=== PATIENT | male | born 1950 ===

== ENCOUNTER 2020-07-25 12:27 | Inpatient (IN) | payer MEDICARE, SELFPAY ==
[~2020-07-25] VITALS: Ht 172.7 cm; Wt 91.0 kg
[2020-07-25 16:50] VITALS: BP 123/66
[2020-07-25] MEDS ORDERED: BISACODYL 10 MG SUPP PR PRN (18:20)
[2020-07-25] MEDS ORDERED: DEXTROSE 50% 50 ML SYRINGE IV PRN (18:20)
[2020-07-25] MEDS ORDERED: GLUCAGON INJ 1MG VIAL SC PRN (18:20)
[2020-07-25] MEDS ORDERED: GLUCOSE 4GM CHEW TABLET PO PRN (18:20)
[2020-07-25] MEDS ORDERED: INDA125TA PO (19:09)
[2020-07-25] MEDS ORDERED: GABA-282 PO (19:09)
[2020-07-25] MEDS ORDERED: CEFA1INJ5 IV (19:09)
[2020-07-25] MEDS ORDERED: METF-838 PO (19:09)
[2020-07-25] MEDS ORDERED: ACET-910 PO (19:09)
[2020-07-25] MEDS ORDERED: LEXA5TAB13 PO (19:09)
[2020-07-25] MEDS ORDERED: LISI20TA33 PO (19:09)
[2020-07-25] MEDS ORDERED: MELO15TA28 PO (19:09)
[2020-07-25] MEDS ORDERED: LANTINJ4 SC (19:09)
[2020-07-25] MEDS ORDERED: ROSU5TAB5 PO (19:09)
[2020-07-25] MEDS ORDERED: OMEP-218 PO (19:09)
[2020-07-25] MEDS ORDERED: GNP8.6TA7 PO (19:09)
[2020-07-25] MEDS ORDERED: INSUHUMDS SC (19:09)
[2020-07-25] MEDS ORDERED: HEPA500057 SQ (19:09)
[2020-07-25] MEDS ORDERED: PIOG1TAB36 PO (19:09)
[2020-07-25] MEDS ORDERED: COLA100C5 PO (19:09)
[2020-07-25] MEDS ORDERED: PILL CUTTER 1 EACH XX PRN (19:40)
[2020-07-25 20:00] VITALS: BP 127/57
[2020-07-25] MEDS: HumaLOG INSULIN (NovoLOG) PER UNIT SC SCH (21:00)
[2020-07-25] MEDS: metFORMIN XR 500MG TAB *GLUCOPHAGE XR PO SCH (21:20)
[2020-07-25] MEDS: ROSUVASTATIN 10 MG TAB (CRESTOR) PO SCH (21:20)
[2020-07-25] MEDS: SENNA 8.6 MG TAB (SENOKOT) PO SCH (21:20)
[2020-07-25] MEDS: DOCUSATE SODIUM 100MG CAPSULE PO SCH (21:20)
[2020-07-25] MEDS: HEPARIN SOD (PORCINE) 5000UNITS/ML 1ML VIAL/SYRINGE SC SCH (21:21)
[2020-07-25] MEDS: ACETAMINOPHEN 500 MG TAB PO SCH (21:21)
[2020-07-25] MEDS: GABAPENTIN 300 MG CAP PO SCH (21:22)
[2020-07-25] MEDS: REMEDY PHYTOPLEX Z-GUARD PASTE 113GM TUBE (FROM STOREROOM PRODUCT) TOP SCH (21:23)
[2020-07-25] MEDS: oxyCODONE 5MG TAB PO PRN (22:36)
[2020-07-26] MEDS: oxyCODONE 5MG TAB PO PRN (03:54)
[2020-07-26 05:08] VITALS: BP 110/54
[2020-07-26 06:58] LABS: HEMATOCRIT 35.7 % (42.0-52.0); HEMOGLOBIN 11.5 g/dl (13.5-17.5); MEAN CORPUSCULAR HEMOGLOBIN 30.4 pg (27.0-33.0); MEAN CORPUSCULAR HGB CONC 32.2 g/dl (32.0-36.5); MEAN CORPUSCULAR VOLUME 94.4 fl (80.0-96.0); PLATELET COUNT, AUTOMATED 407 10^3/uL (150-450); RED BLOOD COUNT 3.78 10^6/uL (4.30-6.10); WHITE BLOOD COUNT 10.1 10^3/uL (4.0-10.0)
[2020-07-26 07:23] LABS: ALBUMIN 2.9 GM/DL (3.2-5.2); ALT/SGPT 61 U/L (12-78); BILIRUBIN,TOTAL 0.4 MG/DL (0.2-1.0); BLOOD UREA NITROGEN 31 MG/DL (7-18); CALCIUM LEVEL 9.1 MG/DL (8.8-10.2); CARBON DIOXIDE LEVEL 30 MEQ/L (21-32); CHLORIDE LEVEL 102 MEQ/L (98-107); CREATININE FOR GFR 0.97 MG/DL (0.70-1.30); GLOMERULAR FILTRATION RATE > 60.0 (>49); GLUCOSE, FASTING 144 MG/DL (70-100); POTASSIUM SERUM 4.5 MEQ/L (3.5-5.1); SODIUM LEVEL 137 MEQ/L (136-145); TOTAL PROTEIN 6.6 GM/DL (6.4-8.2)
[2020-07-26 07:25] LABS: BASOPHILS 1 % (0-1); EOSINOPHILS 5 % (0-3); LYMPHOCYTES 14 % (16-44); MONOCYTES 3 % (0-5); NEUTROPHILS 74 % (28-66); PLATELET ESTIMATE NORMAL (NORMAL)
[2020-07-26 07:26] LABS: ANISOCYTOSIS 1+
[2020-07-26] MEDS: LEVEMIR (INSULIN DETEMIR) 1 UNITS/0.01ML SC SCH (08:21)
[2020-07-26] MEDS: ESCITALOPRAM OXALATE 5MG TABLET (LEXAPRO) PO SCH (08:22)
[2020-07-26] MEDS: HumaLOG INSULIN (NovoLOG) PER UNIT SC SCH ×4 (08:22→20:11)
[2020-07-26] MEDS: HEPARIN SOD (PORCINE) 5000UNITS/ML 1ML VIAL/SYRINGE SC SCH ×2 (08:22→20:14)
[2020-07-26] MEDS: DOCUSATE SODIUM 100MG CAPSULE PO SCH ×2 (08:22→20:14)
[2020-07-26] MEDS: GABAPENTIN 300 MG CAP PO SCH ×3 (08:22→20:14)
[2020-07-26] MEDS: OMEPRAZOLE 20 MG CAP PO SCH (08:22)
[2020-07-26] MEDS: INDAPAMIDE 1.25MG TABLET PO SCH (08:23)
[2020-07-26] MEDS: ACETAMINOPHEN 500 MG TAB PO SCH ×3 (08:23→20:15)
[2020-07-26] MEDS: REMEDY PHYTOPLEX Z-GUARD PASTE 113GM TUBE (FROM STOREROOM PRODUCT) TOP SCH ×3 (08:24→20:15)
--- NOTE | 2020-07-26 10:43 | HPEPDOC ---
[employer] Technician Note DATE OF ADMISSION: 07-25-20 DATE OF SERVICE: 07-26-20 TIME OF ADMISSION: Please refer to physician's admission order. SOURCE OF ADMISSION INFORMATION: [facility] record and patient CHIEF COMPLAINT: s/p L3-S1 decompression with instrumentation and fusion HISTORY OF PRESENT ILLNESS: 70,M pmh DM, HTN, HLD, chronic low back pain with multiple non-surgical interv entions who was diagnosed with grade 2 L4-L5 spondylolisthesis with worsening LE weakness and pain. He as admitted to [facility] and underwent an L3-S1 tranforaminal lumbar interbody fusion on 07-18-[address] Castro. He developed left foot drop and underwent a washout for epidural fluid on 07-22-[address] Bermudez complicated by CSF leak and with cultures showing no growth. He had difficulty with pain and elevated glucose levels. He was noted to have mobility and ADL impairments below his prior level of function and deemed medically appropriate for discharge to ARU on 07-25-20. REVIEW OF SYSTEMS: The following is a completed review of systems and has been reviewed. Review of systems otherwise unremarkable. PAIN: Patient self reports minimal low back pain EYES: No recent vision changes EARS, NOSE, & THROAT:No throat pain, or dysphagia, or rhinorrhea CARDIOVASCULAR: Denies chest pain or palpitations PULMONARY: Denies shortness of breath GASTROINTESTINAL: Denies constipation/diarrhea GENITOURINARY: denies dysuria MUSCULOSKELETAL: low back pain NEUROLOGICAL: left foot drop with paresthesias HEMATOLOGICAL: denies easy bruising SKIN:lumbar incision PSYCHIATRIC: Unremarkable All other review of systems found to be negative. PAST MEDICAL HISTORY: as per HPI PAST SURGICAL HISTORY: as per HPI and prostate surgery ALLERGIES: Please see below. MEDICATIONS: Please see below. SOCIAL HISTORY: no etoh/illicit drugs/smoking DIET: consistent carb, low sodium PHYSICAL EXAMINATION: VITAL SIGNS: Please see below. GENERAL: Pleasant and cooperative. No acute distress. HEENT: PERRL. Extraocular movements intact. Clear conjunctiva CARDIOVASCULAR: [Regular rate and rhythm. No murmurs, rubs, or gallops LUNGS: Clear to auscultation bilaterally. No wheezes. No rhonchi ABDOMEN: [Soft, nontender, nondistended. Positive bowel sounds. Normal active bowel sounds NEUROLOGICAL: Alert and oriented times three. Cranial nerves II through XII grossly intact. Sensation diminished to light touch L4-L5 dermatomes on left EXTREMITIES: 5\5 strength bilateral upper extremities. 5\5 strength right lower extremity. 5/5 strength in left lower extremity, except 0/5 ELH and 1/5 ankle e version SKIN: lumbo-sacral incision with sutures, no branden-incision induration or drainage, incision mildly erythematous LABORATORY DATA: Please see below. IMAGING:Imaging documentation personally reviewed by record FUNCTIONAL STATUS: Premorbid: Independent with all activities of daily life as well as mobility On Admission: Requiring assistance for ambulation with RW, bed mobility, dressing, toileting GOALS: Mod-I for bed mobility, functional transfers, toileting, bathing, dressing ASSESSMENT:70-year-old M with past medical history of HTN. DM. chronic low back pain who presents status post L3-S1 decompression PLAN: 1. REhab- PT/OT advance mobility and ADLs, spinal precautions, strengthen/stretch/maintain ROM all 4llimbs, eval for left AFO 2. Neuro/Ortho- s/p L3-S1 decompression complicated by left foot drop requiring washout and drainage- patient denies saddle region anesthesia or incontinence, TLSO when OOB, f/u neurosurgery on d/c -monitor CRP and wbc for post-op infection 3. Cardiac- HX of HTN c/u BP meds -HLD c/u statin 4. REsp- monitor for infection 5. Endo- hx of DM c/u metformin, Insulin and ISS 6. GI ppx- prilosec 7. DVT ppx- heparin 8. Pain- tylneol, gabapentin, oxycodone 9. REnal- f/u with Dr. Carbajal for incidental renal lesion 10. Depression- lexapro 11. DIspo-TBD POST ADMISSION PHYSICIAN EVALUATION: Medical and functional status: Description of medical status, medical assessment: As above. Rehabilitation diagnosis and current and prior cold morbid medical conditions as above. Risk of complications and plans to mitigate them as above. Description of functional status current status is as above. Prior status as above. Status compared to preadmission: There are no clinically significant differences between the patient's current status and the information described on the preadmission screening document. Treatment plan anticipated: Treatment plan is as described above. Required disciplines including physical therapy, occupational therapy, others as noted above. Intensity of services: 3 hours a day, 7 days a week. Special considerations: There are no specific special or safety considerations that would likely preclude immediate implementation of an intensive rehabilit ation program or subsequently influence the plan of care. ATTESTATION: Considering all the information above, it is my best judgment that this patient requires intensive rehabilitation therapy as described above and an inpatient hospital environment due to the complexity of nursing, medical, and rehabilitation needs required by the patient. Furthermore, this patient can reasonably be expected to participate in an benefit from an inpatient rehabilitation stay with an interdisciplinary team approach to the delivery of rehabilitation care under the direction and supervision of steph cronin. PROGNOSIS: Excellent ESTIMATED LENGTH OF STAY:7-10 days. PROJECTED DISCHARGE DESTINATION: Home with family support and any durable medical equipment required to increase functional safety and mobility TIME SPENT COUNSELING AND COORDINATING INITIAL CARE: Greater than 70 minutes. Vital Signs Vital Sign - Last 24 Hours 07/25/20 07/25/20 07/25/20 07/25/20 16:50 20:00 22:36 23:30 Temp 97.0 98.4 Pulse 87 89 Resp 18 18 20 18 B/P (MAP) 123/66 (85) 127/57 (80) Pulse Ox 93 97 O2 Delivery Room Air Room Air 07/26/20 07/26/20 07/26/20 07/26/20 03:54 04:30 05:08 08:23 Temp 97.2 Pulse 71 Resp 18 16 18 B/P (MAP) 110/54 (72) 110/54 Pulse Ox 94 O2 Delivery Room Air Laboratory Data CBC/BMP Laboratory Tests 07/26/20 06:07 Labs 24H Laboratory Tests 2 07/25/20 20:03: Bedside Glucose (Misc Panel) 197H 07/26/20 05:33: Bedside Glucose (Misc Panel) 144H 07/26/20 06:07: Immature Granulocyte % (Auto) , Neutrophils (%) (Auto) , Nucleated Red Blood Cells % (auto) 0.0, Neutrophils 74H, Band Neutrophils 3, Lymphocytes (Manual) 14L, Monocytes (Manual) 3, Eosinophils (Manual) 5H, Basophils (Manual) 1, Anisoc ytosis 1+, Platelet Estimate NORMAL, Anion Gap 5L, Glomerular Filtration Rate > 60.0, Calcium Level 9.1, Total Bilirubin 0.4, Aspartate Amino Transf (AST/SGOT) 34, Alanine Aminotransferase (ALT/SGPT) 61, Alkaline Phosphatase 125H, Total Protein 6.6, Albumin 2.9L, Albumin/Globulin Ratio 0.8 FSBS Laboratory Tests Test 07/25/20 20:03 07/26/20 05:33 Range/Units Bedside Glucose (Misc Panel) 197 144 80-115 MG/DL Home Medications Scheduled Cefazolin Sodium (Cefazolin Sodium) 1 Gm Vial.port, 1 GM IV Q8H, (Reported) STARTED AT [place] ON 07/23/20 Docusate Sodium (Colace) 100 Mg Capsule, 100 MG PO BID, (Reported) Escitalopram Oxalate (Lexapro) 5 Mg Tablet, 5 MG PO QHS, (Reported) Gabapentin (Gabapentin) 300 Mg Capsule, 300 MG PO TID, (Reported) Heparin Sodium,Porcine/Pf (Heparin Sod 5,000 Unit/ml Syrg) 5,000 Unit/1 Ml Syringe, 5,000 UNIT SQ Q12H, (Reported) STARTED AT [place] Indapamide (Indapamide) 1.25 Mg Tablet, 1.25 MG PO DAILY, (Reported) Insulin Glargine,Hum.rec.anlog (Lantus Solostar) 100 Unit/1 Ml Insuln.pen, 12 UNITS SC DAILY, (Reported) STARTED AT [place] Insulin Human Lispro (Humalog) 100 Unit/1 Ml Vial, 1 DOSE SC AC, (Reported) PER SLIDING SCALE - STARTED AT [place] Lisinopril (Lisinopril) 20 Mg Tablet, 20 MG PO DAILY, (Reported) Meloxicam (Meloxicam) 15 Mg Tablet, 15 MG PO DAILY, (Reported) Metformin HCl (Metformin HCl ER) 500 Mg Tab.er.24h, 1,000 MG PO BID, (Reported) Omeprazole (Omeprazole) 20 Mg Capsule.dr, 20 MG PO DAILY, (Reported) Pioglitazone HCl (Pioglitazone HCl) 15 Mg Tablet, 15 MG PO DAILY, (Reported) Rosuvastatin Calcium (Rosuvastatin Calcium) 5 Mg Tablet, 5 MG PO QHS, (Reported) Sennosides (Senna Lax) 8.6 Mg Tablet, 17.2 MG PO QHS, (Reported) STARTED AT [place] Scheduled PRN Acetaminophen (Acetaminophen) 325 Mg Tablet, 650 MG PO Q4H PRN for PAIN / FEVER, (Reported) Allergies Coded Allergies: No Known Allergies (Unverified , 07/25/20) A-FIB/CHADSVASC A-FIB History Current/History of A-Fib/PAF?: No Current PO Anticoag Therapy: No MINH SANTIAGO MD July 26, 2020 10:43
[2020-07-26 10:56] LABS: C REACTIVE PROTEIN QUANTITATIV 5.11 MG/DL (0.00-0.30)
--- NOTE | 2020-07-26 11:16 | HPEPDOC ---
[facility] Medical History & Physical Date of Admission July 25, 2020 Date of Service: July 26, 2020 History and Physical CHIEF COMPLAINT: Chronic leg and back pain, spinal stenosis, status post L3-S1 transforaminal lumbar interbody fusion with washout HISTORY OF PRESENT ILLNESS: 70-year-old nonsmoker hypertensive diabetic with chronic insomnia, spinal stenosis L3 to S1. Prostate CA, status post prostatectomy transferred from [facility] status post L3-S1 lumbar interbody fusion with washout, admitted to the acute rehabilitation unit for rehabilitation services. Patient has had long-standing back and leg pain and had undergone conservative management without relief of symptoms significant limitations of activities of daily living, was brought to the operating room across hospital July 18 for L3-S1 transforaminal lumbar interbody fusion on postop day #3, patient developed a new left sided foot drop but back to the OR for lumbar wound washout intraoperative cultures were negative for acute infection. He was treated with prophylactic intravenous Kefzol with improvement in his left foot sharonda patient had no other clinical issues and was transferred to the acute rehabilitation unit [facility]. Patient is currently stable with no complaints. Hospitalist was asked to help manage chronic medical problems. Patient denies any chest pain, pressure, tightness, shortness of breath, palpitations, lightheadedness, dizziness, near syncope. He denies any fever, chills, cough, changes in weight, bowel habits, dysuria, urgency, frequency bright red blood per rectum, melena, black tarry stools, nausea, vomiting, diarrhea, abdominal pain, constipation. He denies any polyuria, polydipsia, polyphagia. No changes in his neurological status, and denies diplopia, blurred vision, muscle or joint pains, generalized maculopapular rash, sore throat, vertigo, ear discharge. PAST MEDICAL HISTORY: Hypertension, diabetes, reflux disease, spinal stenosis, lumbosacral spine, prostate cancer status post prostatectomy incidental finding of a renal mass PAST SURGICAL HISTORY: Prostatectomy, L3-L4 and transforaminal lumbar interbody fusion, lumbar washout SOCIAL HISTORY: is . Patient denies any history of cigarette or alcohol use. No recreational drug use. Retired, previously worked for the time of the call his healthcare proxy is his daughter. He is a focal FAMILY HISTORY: Mother and father age 83. Mother has a leg amputation, unknown medical problems. For the father ALLERGIES: Please see below. REVIEW OF SYSTEMS: 10 point review of systems negative aside from positive findings in HPI HOME MEDICATIONS: Please see below. PHYSICAL EXAMINATION: VITAL SIGNS: See below GENERAL APPEARANCE: Asleep but easily arousable, awake, alert, oriented, able to speak in full sentences. No conversational dyspnea HEENT: Extra muscles intact moist mucous, murmurs or JVD, thyromegaly, stridor, lymphadenopathy or carotid bruit CARDIOVASCULAR: S1, S2, sinus rhythm, no murmurs, rubs or gallops LUNGS: Air entry is equal. No kyphosis or scoliosis clear to auscultation without wheezing, rales, rhonchi ABDOMEN: Positive bowel sounds, soft, nontender, nondistended. No rebound, guarding, no CVA tenderness EXTREMITIES: No cyanosis, clubbing or pitting edema Neurologic: Motor function 5 out of 54 extremities. Gait was not tested. Symmetric face. Tongue is midline. No dysmetria on [id number] testing. Decreased sensation in the left foot light touch LABORATORY DATA: See below. IMAGING: Reviewed from [facility] MICROBIOLOGY: Please see below. ASSESSMENT: 70-year-old nonsmoker hypertensive diabetic with chronic insomnia, spinal stenosis L3 to S1. Prostate CA, status post prostatectomy transferred from [facility] status post L3-S1 lumbar interbody fusion with washout, admitted to the acute rehabilitation unit for rehabilitation services. Patient has had long-standing back and leg pain and had undergone conservative management without relief of symptoms significant limitations of activities of daily living, was brought to the operating room across hospital July 18 for L3-S1 transforaminal lumbar interbody fusion on postop day #3, patient developed a new left sided foot drop but back to the OR for lumbar wound washout intraoperative cultures were negative for acute infection. He was treated with prophylactic intravenous Kefzol with improvement in his left foot sharonda patient had no other clinical issues and was transferred to the acute rehabilitation unit [facility]. Patient is currently stable with no complaints. Hospitalist was asked to help manage chronic medical problems. Patient denies any chest pain, pressure, tightness, shortness of breath, palpitations, lightheadedness, dizziness, near syncope. He denies any fever, chills, cough, changes in weight, bowel habits, dysuria, urgency, frequency bright red blood per rectum, melena, black tarry stools, nausea, vomiting, diarrhea, abdominal pain, constipation. He denies any polyuria, polydipsia, polyphagia. No changes in his neurological status, and denies diplopia, blurred vision, muscle or joint pains, generalized maculopapular rash, sore throat, vertigo, ear discharge. Symptomatic spinal stenosis with left sided foot drop, status post L3-S1 transforaminal lumbar interbody fusion and lumbar washout Patient is to wear molded TLSO brace when out of bed with full weightbearing. Wound care with gentle wash incision with soap and water, black dried and dry thoroughly with hairdryer. No submersion in standing water. Follow-up with neurosurgery within 2 weeks . Rehabilitation services per P MR. Renal mass, incidental finding at [facility] Urology referral History of prostate cancer status post prostatectomy Urology referral for follow-up Hypertension Control resumed on home medications Type 2 diabetes On Lantus oral hypoglycemics and insulin sliding scale with coverage fingersticks every before meals at bedtime check A1c Dyslipidemia On rosuvastatin Vital Signs Vital Signs Date Time Temp Pulse Resp B/P (MAP) Pulse Ox O2 Delivery O2 Flow Rate FiO2 07/26/20 08:23 110/54 07/26/20 05:08 97.2 71 18 94 Room Air Laboratory Data Labs 24H Laboratory Tests 2 07/25/20 20:03: Bedside Glucose (Misc Panel) 197H 07/26/20 05:33: Bedside Glucose (Misc Panel) 144H 07/26/20 06:07: Immature Granulocyte % (Auto) , Neutrophils (%) (Auto) , Nucleated Red Blood Cells % (auto) 0.0, Neutrophils 74H, Band Neutrophils 3, Lymphocytes (Manual) 14L, Monocytes (Manual) 3, Eosinophils (Manual) 5H, Basophils (Manual) 1, Ani socytosis 1+, Platelet Estimate NORMAL, Anion Gap 5L, Glomerular Filtration Rate > 60.0, Calcium Level 9.1, Total Bilirubin 0.4, Aspartate Amino Transf (AST/SGOT) 34, Alanine Aminotransferase (ALT/SGPT) 61, Alkaline Phosphatase 125H, C-Reactive Protein, Quantitative 5.11H, Total Protein 6.6, Albumin 2.9L, Albumin/Globulin Ratio 0.8 CBC/BMP Laboratory Tests 07/26/20 06:07 Home Medications Scheduled Cefazolin Sodium (Cefazolin Sodium) 1 Gm Vial.port, 1 GM IV Q8H STARTED AT [place] ON 07/23/20 Docusate Sodium (Colace) 100 Mg Capsule, 100 MG PO BID Escitalopram Oxalate (Lexapro) 5 Mg Tablet, 5 MG PO QHS Gabapentin (Gabapentin) 300 Mg Capsule, 300 MG PO TID Heparin Sodium,Porcine/Pf (Heparin Sod 5,000 Unit/ml Syrg) 5,000 Unit/1 Ml Syringe, 5,000 UNIT SQ Q12H STARTED AT [place] Indapamide (Indapamide) 1.25 Mg Tablet, 1.25 MG PO DAILY Insulin Glargine,Hum.rec.anlog (Lantus Solostar) 100 Unit/1 Ml Insuln.pen, 12 UNITS SC DAILY STARTED AT [place] Insulin Human Lispro (Humalog) 100 Unit/1 Ml Vial, 1 DOSE SC AC PER SLIDING SCALE - STARTED AT [place] Lisinopril (Lisinopril) 20 Mg Tablet, 20 MG PO DAILY Meloxicam (Meloxicam) 15 Mg Tablet, 15 MG PO DAILY Metformin HCl (Metformin HCl ER) 500 Mg Tab.er.24h, 1,000 MG PO BID Omeprazole (Omeprazole) 20 Mg Capsule.dr, 20 MG PO DAILY Pioglitazone HCl (Pioglitazone HCl) 15 Mg Tablet, 15 MG PO DAILY Rosuvastatin Calcium (Rosuvastatin Calcium) 5 Mg Tablet, 5 MG PO QHS Sennosides (Senna Lax) 8.6 Mg Tablet, 17.2 MG PO QHS STARTED AT [place] Scheduled PRN Acetaminophen (Acetaminophen) 325 Mg Tablet, 650 MG PO Q4H PRN for PAIN / FEVER Allergies Coded Allergies: No Known Allergies (Unverified , 07/25/20) A-FIB/CHADSVASC A-FIB History Current/History of A-Fib/PAF?: No Current PO Anticoag Therapy: No Age/Risk Factor Scoring CHADSVASC: CHADSVASC Response (Comments) Value Age Risk Factor Age 65-74 years old 1 Gender Risk Factor Male 0 Hx of CHF No 0 Hx of HTN Yes 1 Hx of Stroke/TIA/or VTE No 0 Hx of Diabetes Yes 1 Hx of Vascular Disease No 0 Total 3 CHERRY OKCH MD July 26, 2020 11:16
[2020-07-26 11:22] LABS: CHOLESTEROL LEVEL 157 MG/DL (<200); HDL CHOLESTEROL 25 MG/DL (>40); LDL CHOLESTEROL 78 MG/DL (<100); NON-HDL-C 132 MG/DL; TRIGLYCERIDES LEVEL 271 MG/DL (<150)
[2020-07-26 12:13] LABS: HEMOGLOBIN A1c 7.5 %
[2020-07-26 14:00] VITALS: BP 109/56
[2020-07-26] MEDS: metFORMIN XR 500MG TAB *GLUCOPHAGE XR PO SCH (17:15)
[2020-07-26 20:00] VITALS: BP 97/55
[2020-07-26] MEDS: ROSUVASTATIN 10 MG TAB (CRESTOR) PO SCH (20:14)
[2020-07-26] MEDS: SENNA 8.6 MG TAB (SENOKOT) PO SCH (20:14)
[2020-07-27 05:23] VITALS: BP 115/64
[2020-07-27 06:35] LABS: HEMATOCRIT 37.7 % (42.0-52.0); HEMOGLOBIN 11.7 g/dl (13.5-17.5); MEAN CORPUSCULAR HEMOGLOBIN 29.8 pg (27.0-33.0); MEAN CORPUSCULAR VOLUME 96.2 fl (80.0-96.0); PLATELET COUNT, AUTOMATED 505 10^3/uL (150-450); RED BLOOD COUNT 3.92 10^6/uL (4.30-6.10); WHITE BLOOD COUNT 10.6 10^3/uL (4.0-10.0)
[2020-07-27 07:00] LABS: BLOOD UREA NITROGEN 42 MG/DL (7-18); CALCIUM LEVEL 9.3 MG/DL (8.8-10.2); CARBON DIOXIDE LEVEL 30 MEQ/L (21-32); CHLORIDE LEVEL 100 MEQ/L (98-107); CREATININE FOR GFR 1.21 MG/DL (0.70-1.30); GLOMERULAR FILTRATION RATE > 60.0 (>49); GLUCOSE, FASTING 186 MG/DL (70-100); POTASSIUM SERUM 4.6 MEQ/L (3.5-5.1); SODIUM LEVEL 134 MEQ/L (136-145)
[2020-07-27 07:07] LABS: ATYPICAL LYMPH 2 % (0-5); EOSINOPHILS 2 % (0-3); LYMPHOCYTES 29 % (16-44); MONOCYTES 7 % (0-5); MYELOCYTES 1 % (0-0); NEUTROPHILS 57 % (28-66)
[2020-07-27 07:08] LABS: PLATELET ESTIMATE INCREASED (NORMAL)
[2020-07-27 07:09] LABS: ANISOCYTOSIS 1+
[2020-07-27] MEDS: OMEPRAZOLE 20 MG CAP PO SCH (08:16)
[2020-07-27] MEDS: INDAPAMIDE 1.25MG TABLET PO SCH (08:16)
[2020-07-27] MEDS: DOCUSATE SODIUM 100MG CAPSULE PO SCH ×2 (08:16→21:47)
[2020-07-27] MEDS: ESCITALOPRAM OXALATE 5MG TABLET (LEXAPRO) PO SCH (08:16)
[2020-07-27] MEDS: HEPARIN SOD (PORCINE) 5000UNITS/ML 1ML VIAL/SYRINGE SC SCH ×2 (08:17→21:49)
[2020-07-27] MEDS: ACETAMINOPHEN 500 MG TAB PO SCH ×3 (08:17→21:51)
[2020-07-27] MEDS: LEVEMIR (INSULIN DETEMIR) 1 UNITS/0.01ML SC SCH (08:17)
[2020-07-27] MEDS: GABAPENTIN 300 MG CAP PO SCH ×3 (08:17→21:50)
[2020-07-27] MEDS: HumaLOG INSULIN (NovoLOG) PER UNIT SC SCH ×4 (08:18→21:00)
[2020-07-27] MEDS: REMEDY PHYTOPLEX Z-GUARD PASTE 113GM TUBE (FROM STOREROOM PRODUCT) TOP SCH ×3 (08:18→21:00)
[2020-07-27 14:00] VITALS: BP 119/59
[2020-07-27] MEDS: metFORMIN XR 500MG TAB *GLUCOPHAGE XR PO SCH (17:19)
[2020-07-27 20:30] VITALS: BP 150/87
[2020-07-27] MEDS: SENNA 8.6 MG TAB (SENOKOT) PO SCH (21:47)
[2020-07-27] MEDS: oxyCODONE 5MG TAB PO PRN (21:49)
[2020-07-27] MEDS: ROSUVASTATIN 10 MG TAB (CRESTOR) PO SCH (21:50)
[2020-07-28] MEDS: oxyCODONE 5MG TAB PO PRN ×3 (02:17→21:24)
[2020-07-28 06:40] VITALS: BP 139/61
[2020-07-28] MEDS: HumaLOG INSULIN (NovoLOG) PER UNIT SC SCH ×4 (08:27→21:00)
[2020-07-28] MEDS: LEVEMIR (INSULIN DETEMIR) 1 UNITS/0.01ML SC SCH (08:27)
[2020-07-28] MEDS: HEPARIN SOD (PORCINE) 5000UNITS/ML 1ML VIAL/SYRINGE SC SCH ×2 (08:28→21:22)
[2020-07-28] MEDS: INDAPAMIDE 1.25MG TABLET PO SCH (08:29)
[2020-07-28] MEDS: ACETAMINOPHEN 500 MG TAB PO SCH ×3 (08:29→21:27)
[2020-07-28] MEDS: DOCUSATE SODIUM 100MG CAPSULE PO SCH ×2 (08:29→21:22)
[2020-07-28] MEDS: OMEPRAZOLE 20 MG CAP PO SCH (08:29)
[2020-07-28] MEDS: ESCITALOPRAM OXALATE 5MG TABLET (LEXAPRO) PO SCH (08:29)
[2020-07-28] MEDS: GABAPENTIN 300 MG CAP PO SCH ×3 (08:30→21:26)
[2020-07-28] MEDS: REMEDY PHYTOPLEX Z-GUARD PASTE 113GM TUBE (FROM STOREROOM PRODUCT) TOP SCH ×3 (08:52→21:00)
[2020-07-28 14:00] VITALS: BP 130/72
[2020-07-28] MEDS: metFORMIN XR 500MG TAB *GLUCOPHAGE XR PO SCH (17:36)
[2020-07-28 20:30] VITALS: BP 127/61
[2020-07-28] MEDS: ROSUVASTATIN 10 MG TAB (CRESTOR) PO SCH (21:25)
[2020-07-28] MEDS: SENNA 8.6 MG TAB (SENOKOT) PO SCH (21:26)
[2020-07-29] MEDS: oxyCODONE 5MG TAB PO PRN ×3 (02:40→21:23)
[2020-07-29 05:36] VITALS: BP 138/64
[2020-07-29 08:00] VITALS: BP 140/63
[2020-07-29] MEDS: HEPARIN SOD (PORCINE) 5000UNITS/ML 1ML VIAL/SYRINGE SC SCH ×2 (08:02→21:24)
[2020-07-29] MEDS: MIRALAX *UNIT DOSE* 17GM PACKET PO PRN (08:02)
[2020-07-29] MEDS: LEVEMIR (INSULIN DETEMIR) 1 UNITS/0.01ML SC SCH (08:06)
[2020-07-29] MEDS: INDAPAMIDE 1.25MG TABLET PO SCH (08:07)
[2020-07-29] MEDS: DOCUSATE SODIUM 100MG CAPSULE PO SCH ×2 (08:07→21:22)
[2020-07-29] MEDS: ESCITALOPRAM OXALATE 5MG TABLET (LEXAPRO) PO SCH (08:07)
[2020-07-29] MEDS: OMEPRAZOLE 20 MG CAP PO SCH (08:07)
[2020-07-29] MEDS: GABAPENTIN 300 MG CAP PO SCH ×3 (08:07→21:21)
[2020-07-29] MEDS: HumaLOG INSULIN (NovoLOG) PER UNIT SC SCH ×4 (08:07→21:00)
[2020-07-29] MEDS: ACETAMINOPHEN 500 MG TAB PO SCH ×3 (08:09→21:00)
[2020-07-29] MEDS: REMEDY PHYTOPLEX Z-GUARD PASTE 113GM TUBE (FROM STOREROOM PRODUCT) TOP SCH ×3 (08:10→21:24)
[2020-07-29 14:00] VITALS: BP 132/79
[2020-07-29] MEDS: metFORMIN XR 500MG TAB *GLUCOPHAGE XR PO SCH (17:28)
[2020-07-29 20:00] VITALS: BP 110/67
[2020-07-29] MEDS: ROSUVASTATIN 10 MG TAB (CRESTOR) PO SCH (21:22)
[2020-07-29] MEDS: SENNA 8.6 MG TAB (SENOKOT) PO SCH (21:22)
[2020-07-30 05:09] VITALS: BP 118/62
[2020-07-30 08:00] VITALS: BP 139/66
[2020-07-30] MEDS: HumaLOG INSULIN (NovoLOG) PER UNIT SC SCH ×4 (08:34→19:36)
[2020-07-30] MEDS: LEVEMIR (INSULIN DETEMIR) 1 UNITS/0.01ML SC SCH (08:34)
[2020-07-30] MEDS: INDAPAMIDE 1.25MG TABLET PO SCH (08:35)
[2020-07-30] MEDS: GABAPENTIN 300 MG CAP PO SCH ×3 (08:35→20:53)
[2020-07-30] MEDS: MIRALAX *UNIT DOSE* 17GM PACKET PO PRN (08:35)
[2020-07-30] MEDS: OMEPRAZOLE 20 MG CAP PO SCH (08:35)
[2020-07-30] MEDS: HEPARIN SOD (PORCINE) 5000UNITS/ML 1ML VIAL/SYRINGE SC SCH ×2 (08:35→20:54)
[2020-07-30] MEDS: ESCITALOPRAM OXALATE 5MG TABLET (LEXAPRO) PO SCH (08:35)
[2020-07-30] MEDS: DOCUSATE SODIUM 100MG CAPSULE PO SCH (08:35)
[2020-07-30] MEDS: ACETAMINOPHEN 500 MG TAB PO SCH ×3 (08:36→20:54)
[2020-07-30] MEDS: REMEDY PHYTOPLEX Z-GUARD PASTE 113GM TUBE (FROM STOREROOM PRODUCT) TOP SCH ×3 (08:36→20:55)
[2020-07-30 08:44] LABS: BASO # 0.1 10^3/uL (0.0-0.2); BASO % 0.5 % (0.0-1.0); EOS # 0.2 10^3/uL (0.0-0.5); EOS % 2.2 % (0.0-3.0); HEMATOCRIT 35.7 % (42.0-52.0); HEMOGLOBIN 11.3 g/dl (13.5-17.5); LYMPH # 1.2 10^3/uL (1.5-5.0); LYMPH % 11.3 % (24.0-44.0); MEAN CORPUSCULAR HEMOGLOBIN 29.8 pg (27.0-33.0); MEAN CORPUSCULAR HGB CONC 31.7 g/dl (32.0-36.5); MEAN CORPUSCULAR VOLUME 94.2 fl (80.0-96.0); MONO # 0.7 10^3/uL (0.0-0.8); MONO % 6.3 % (2.0-8.0); NEUTROPHILS # 8.3 10^3/uL (1.5-8.5); NEUTROPHILS % 78.3 % (36.0-66.0); PLATELET COUNT, AUTOMATED 528 10^3/uL (150-450); RED BLOOD COUNT 3.79 10^6/uL (4.30-6.10); WHITE BLOOD COUNT 10.6 10^3/uL (4.0-10.0)
[2020-07-30 09:09] LABS: BLOOD UREA NITROGEN 31 MG/DL (7-18); CALCIUM LEVEL 9.1 MG/DL (8.8-10.2); CARBON DIOXIDE LEVEL 28 MEQ/L (21-32); CHLORIDE LEVEL 101 MEQ/L (98-107); CREATININE FOR GFR 1.05 MG/DL (0.70-1.30); GLOMERULAR FILTRATION RATE > 60.0 (>49); GLUCOSE, FASTING 221 MG/DL (70-100); POTASSIUM SERUM 4.9 MEQ/L (3.5-5.1); SODIUM LEVEL 134 MEQ/L (136-145)
[2020-07-30 14:00] VITALS: BP 101/58
[2020-07-30 15:44] LABS: C REACTIVE PROTEIN QUANTITATIV 1.66 MG/DL (0.00-0.30)
[2020-07-30] MEDS: metFORMIN XR 500MG TAB *GLUCOPHAGE XR PO SCH (18:03)
[2020-07-30 20:00] VITALS: BP 132/59
[2020-07-30] MEDS: ROSUVASTATIN 10 MG TAB (CRESTOR) PO SCH (20:53)
[2020-07-30] MEDS: oxyCODONE 5MG TAB PO PRN (21:52)
[2020-07-31] MEDS: oxyCODONE 5MG TAB PO PRN ×2 (02:07→21:48)
[2020-07-31 05:07] VITALS: BP 114/56
[2020-07-31] MEDS: HumaLOG INSULIN (NovoLOG) PER UNIT SC SCH ×4 (07:37→21:00)
[2020-07-31] MEDS: LEVEMIR (INSULIN DETEMIR) 1 UNITS/0.01ML SC SCH (07:37)
[2020-07-31] MEDS: HEPARIN SOD (PORCINE) 5000UNITS/ML 1ML VIAL/SYRINGE SC SCH ×2 (07:38→21:48)
[2020-07-31] MEDS: ACETAMINOPHEN 500 MG TAB PO SCH ×3 (07:38→21:47)
[2020-07-31] MEDS: ESCITALOPRAM OXALATE 5MG TABLET (LEXAPRO) PO SCH (07:43)
[2020-07-31] MEDS: INDAPAMIDE 1.25MG TABLET PO SCH (07:43)
[2020-07-31] MEDS: GABAPENTIN 300 MG CAP PO SCH ×3 (07:43→21:48)
[2020-07-31] MEDS: OMEPRAZOLE 20 MG CAP PO SCH (07:43)
[2020-07-31] MEDS: REMEDY PHYTOPLEX Z-GUARD PASTE 113GM TUBE (FROM STOREROOM PRODUCT) TOP SCH ×3 (07:44→21:49)
[2020-07-31 14:00] VITALS: BP 134/66
[2020-07-31] MEDS: LACTOBACILLUS ACIDOPHILUS CAP (BACID) PO SCH ×2 (14:56→17:12)
[2020-07-31] MEDS: DOXYCYCLINE HYCLATE 100MG TABLET PO SCH ×2 (14:56→21:47)
[2020-07-31] MEDS: SANTYL OINT 30GM TOP SCH ×2 (14:57→21:49)
[2020-07-31] MEDS: metFORMIN XR 500MG TAB *GLUCOPHAGE XR PO SCH (17:12)
[2020-07-31] MEDS: ROSUVASTATIN 10 MG TAB (CRESTOR) PO SCH (21:48)
[2020-07-31 22:00] VITALS: BP 141/69
[2020-08-01] MEDS: oxyCODONE 5MG TAB PO PRN ×2 (02:08→22:08)
[2020-08-01 06:00] VITALS: BP 139/64
--- NOTE | 2020-08-01 08:01 | IPNPDOC ---
PM&R Progress Note DATE OF SERVICE: July 30, 2020 [facility] Progress Note Subjective: Patient reporting he feels good, he has minimal pain, and denies any new weakness, no fevers, or chills. REVIEW OF SYSTEMS: The following is a completed review of systems and has been reviewed. Review of systems otherwise unremarkable. PAIN: Patient self reports minimal low back pain EYES: No recent vision changes EARS, NOSE, & THROAT:No throat pain, or dysphagia, or rhinorrhea CARDIOVASCULAR: Denies chest pain or palpitations PULMONARY: Denies shortness of breath GASTROINTESTINAL: Denies constipation/diarrhea GENITOURINARY: denies dysuria MUSCULOSKELETAL: low back pain NEUROLOGICAL: left foot drop with paresthesias HEMATOLOGICAL: denies easy bruising SKIN:lumbar incision PSYCHIATRIC: Unremarkable All other review of systems found to be negative. PHYSICAL EXAMINATION: VITAL SIGNS: Please see below. GENERAL: Pleasant and cooperative. No acute distress. HEENT: PERRL. Extraocular movements intact. Clear conjunctiva CARDIOVASCULAR: Regular rate and rhythm. No murmurs, rubs, or gallops LUNGS: Clear to auscultation bilaterally. No wheezes. No rhonchi ABDOMEN: Soft, nontender, nondistended. Positive bowel sounds. Normal active bowel sounds NEUROLOGICAL: Alert and oriented times three. Cranial nerves II through XII grossly intact. Sensation diminished to light touch L4-L5 dermatomes on left EXTREMITIES: 5\5 strength bilateral upper extremities. 5\5 strength right lower extremity. 5/5 strength in left lower extremity, except 0/5 ELH and 1/5 ankle eversion SKIN: lumbo-sacral incision with sutures, no branden-incision induration or drainage, incision mildly erythematous ASSESSMENT:70-year-old M with past medical history of HTN. DM. chronic low back pain who presents status post L3-S1 decompression PLAN: 1. REhab- PT/OT advance mobility and ADLs, spinal precautions, strengthen/stretch/maintain ROM all 4llimbs, eval for left AFO 2. Neuro/Ortho- s/p L3-S1 decompression complicated by left foot drop requiring washout and drainage- patient denies saddle region anesthesia or incontinence, TLSO when OOB, f/u neurosurgery on d/c -monitor CRP and wbc for post-op infection 3. Cardiac- HX of HTN c/u BP meds -HLD c/u statin 4. REsp- monitor for infection 5. Endo- hx of DM c/u metformin, Insulin and ISS 6. GI ppx- prilosec 7. DVT ppx- heparin 8. Pain- tylneol, gabapentin, oxycodone 9. REnal- f/u with Dr. Carbajal for incidental renal lesion 10. Depression- lexapro 11. Dispo-TBD Allergies Coded Allergies: No Known Allergies (Unverified , 07/25/20) Vital Signs Vital Signs Date Time Temp Pulse Resp B/P (MAP) Pulse Ox O2 Delivery O2 Flow Rate FiO2 08/01/20 06:00 97.6 78 21 139/64 (89) 96 Room Air Laboratory Data Labs 24H Laboratory Tests 2 07/31/20 11:21: Bedside Glucose (Misc Panel) 144H 07/31/20 16:28: Bedside Glucose (Misc Panel) 149H 07/31/20 19:51: Bedside Glucose (Misc Panel) 177H 08/01/20 05:50: Bedside Glucose (Misc Panel) 167H Current Medications Current Medications Current Medications Medications (Trade) Dose Ordered Sig/Roya Route PRN Reason Start Time Stop Time Status Last Admin Dose Admin Acetaminophen (Tylenol Tab) 1,000 mg TID PO 07/25/20 21:00 07/31/20 21:47 Bisacodyl (Dulcolax Suppository) 10 mg DAILYPRN PRN [place] CONSTIPATION 07/25/20 18:20 Collagenase (SantyL) 1 dose BID TOP 07/31/20 14:00 07/31/20 21:49 Dextrose (Dextrose 50%) 25 ml ASDIRECTED PRN IV SEE LABEL COMMENTS 07/25/20 18:20 Docusate Sodium (Colace) 100 mg BID PO 07/25/20 21:00 07/30/20 17:12 DC 07/30/20 08:35 Doxycycline Hyclate (Vibramycin) 100 mg BID PO 07/31/20 13:00 08/06/20 21:01 07/31/20 21:47 Escitalopram Oxalate (Lexapro) 5 mg DAILY PO 07/26/20 09:00 07/31/20 07:43 Gabapentin (Neurontin) 300 mg TID PO 07/25/20 21:00 07/31/20 21:48 Glucagon (Glucagon) 1 mg ASDIRECTED PRN SC SEE LABEL COMMENTS 07/25/20 18:20 Glucose (Glucose) 16 GM ASDIRECTED PRN PO SEE LABEL COMMENTS 07/25/20 18:20 Heparin Sodium (Porcine) (Heparin) 5,000 units Q12H SC 07/25/20 21:00 07/31/20 21:48 Home Med (Med Rec Complete!) ASDIRECTED XX 07/25/20 19:15 07/25/20 19:21 DC Indapamide (Lozol) 1.25 mg DAILY PO 07/26/20 09:00 07/31/20 07:43 Insulin Detemir (Levemir Insulin) 12 units DAILY SC 07/26/20 09:00 07/31/20 07:37 Insulin Human Lispro (HumaLOG INSULIN) SEE PROTOCOL TABLE AC SC 07/26/20 07:30 07/31/20 17:12 Insulin Human Lispro (HumaLOG INSULIN) SEE PROTOCOL TABLE QHS SC 07/25/20 21:00 Lactobacillus Acidophilus (Bacid) 1 ea WM PO 07/31/20 12:30 07/31/20 17:12 Lisinopril (Prinivil) 20 mg DAILY PO 07/26/20 09:00 07/31/20 07:43 Metformin HCl (Glucophage Xr) 500 mg DAILY@18 PO 07/25/20 18:00 07/31/20 17:12 Omeprazole (PriLOSEC) 20 mg DAILY PO 07/26/20 09:00 07/31/20 07:43 Oxycodone HCl (Roxicodone, Oxyir) 5 mg Q4HP PRN PO PAIN 07/26/20 22:05 08/01/20 02:08 Oxycodone HCl (Roxicodone, Oxyir) 10 mg Q4HP PRN PO PAIN 07/25/20 18:20 07/26/20 22:18 DC 07/26/20 03:54 Polyethylene Glycol (Miralax) 1 pkt DAILY PRN PO CONSTIPATION 07/25/20 18:20 07/30/20 17:12 DC 07/30/20 08:35 Rosuvastatin Calcium (Crestor) 5 mg QHS PO 07/25/20 21:00 07/31/20 21:48 Senna (Senokot) 1 tab QHS PO 07/25/20 21:00 07/30/20 17:12 DC 07/29/20 21:22 MINH SANTIAGO MD August 01, 2020 08:01
[2020-08-01] MEDS: HumaLOG INSULIN (NovoLOG) PER UNIT SC SCH ×4 (08:12→20:46)
[2020-08-01] MEDS: LEVEMIR (INSULIN DETEMIR) 1 UNITS/0.01ML SC SCH (08:12)
--- NOTE | 2020-08-01 08:12 | IPNPDOC ---
PM&R Progress Note DATE OF SERVICE: July 31, 2020 Ob Nurse Progress Note Subjective: Patient reporting he is moving well in therapy, denies any fevers, new or worsening back pain, and would like his bowel meds stopped because he is having loose stools. REVIEW OF SYSTEMS: The following is a completed review of systems and has been reviewed. Review of systems otherwise unremarkable. PAIN: Patient self reports minimal low back pain EYES: No recent vision changes EARS, NOSE, & THROAT:No throat pain, or dysphagia, or rhinorrhea CARDIOVASCULAR: Denies chest pain or palpitations PULMONARY: Denies shortness of breath GASTROINTESTINAL: Denies constipation/diarrhea GENITOURINARY: denies dysuria MUSCULOSKELETAL: low back pain NEUROLOGICAL: left foot drop with paresthesias HEMATOLOGICAL: denies easy bruising SKIN:lumbar incision PSYCHIATRIC: Unremarkable All other review of systems found to be negative. PHYSICAL EXAMINATION: VITAL SIGNS: Please see below. GENERAL: Pleasant and cooperative. No acute distress. HEENT: PERRL. Extraocular movements intact. Clear conjunctiva CARDIOVASCULAR: Regular rate and rhythm. No murmurs, rubs, or gallops LUNGS: Clear to auscultation bilaterally. No wheezes. No rhonchi ABDOMEN: Soft, nontender, nondistended. Positive bowel sounds. Normal active bowel sounds NEUROLOGICAL: Alert and oriented times three. Cranial nerves II through XII grossly intact. Sensation diminished to light touch L4-L5 dermatomes on left EXTREMITIES: 5\5 strength bilateral upper extremities. 5\5 strength right lower extremity. 5/5 strength in left lower extremity, except 0/5 ELH and 1/5 ankle eversion SKIN: lumbo-sacral incision with sutures, no branden-incision induration or drainage, however new patches of exudate along incision line ASSESSMENT:70-year-old M with past medical history of HTN. DM. chronic low back pain who presents status post L3-S1 decompression PLAN: 1. REhab- PT/OT advance mobility and ADLs, spinal precautions, strengthen/stretch/maintain ROM all 4llimbs, eval for left AFO vs lateral 2. Neuro/Ortho- s/p L3-S1 decompression complicated by left foot drop requiring washout and drainage- patient denies saddle region anesthesia or incontinence, TLSO when OOB, f/u neurosurgery on d/c -monitor CRP and wbc for post-op infection 3. Cardiac- HX of HTN c/u BP meds -HLD c/u statin 4. REsp- monitor for infection 5. Endo- hx of DM c/u metformin, Insulin and ISS 6. GI ppx- prilosec 7. DVT ppx- heparin 8. Pain- tylneol, gabapentin, oxycodone 9. REnal- f/u with Dr. Carbajal for incidental renal lesion 10. Depression- lexapro 11. Skin- lumbar incision with scant exudate, no drainage, will add santyl , increase dressing change frequency to BID with wound cleanser and branden- incisional skin prep to prevent branden-incisional maceration -initiate doxycycline for soft tissue infection, c/u monitor CRP and wbc 12. Dispo-08/04/20 to home Allergies Coded Allergies: No Known Allergies (Unverified , 07/25/20) Vital Signs Vital Signs Date Time Temp Pulse Resp B/P (MAP) Pulse Ox O2 Delivery O2 Flow Rate FiO2 08/01/20 06:00 97.6 78 21 139/64 (89) 96 Room Air Laboratory Data Labs 24H Laboratory Tests 2 07/31/20 11:21: Bedside Glucose (Misc Panel) 144H 07/31/20 16:28: Bedside Glucose (Misc Panel) 149H 07/31/20 19:51: Bedside Glucose (Misc Panel) 177H 08/01/20 05:50: Bedside Glucose (Misc Panel) 167H Current Medications Current Medications Current Medications Medications (Trade) Dose Ordered Sig/Roya Route PRN Reason Start Time Stop Time Status Last Admin Dose Admin Acetaminophen (Tylenol Tab) 1,000 mg TID PO 07/25/20 21:00 07/31/20 21:47 Bisacodyl (Dulcolax Suppository) 10 mg DAILYPRN PRN [place] CONSTIPATION 07/25/20 18:20 Collagenase (SantyL) 1 dose BID TOP 07/31/20 14:00 07/31/20 21:49 Dextrose (Dextrose 50%) 25 ml ASDIRECTED PRN IV SEE LABEL COMMENTS 07/25/20 18:20 Docusate Sodium (Colace) 100 mg BID PO 07/25/20 21:00 07/30/20 17:12 DC 07/30/20 08:35 Doxycycline Hyclate (Vibramycin) 100 mg BID PO 07/31/20 13:00 08/06/20 21:01 07/31/20 21:47 Escitalopram Oxalate (Lexapro) 5 mg DAILY PO 07/26/20 09:00 07/31/20 07:43 Gabapentin (Neurontin) 300 mg TID PO 07/25/20 21:00 07/31/20 21:48 Glucagon (Glucagon) 1 mg ASDIRECTED PRN SC SEE LABEL COMMENTS 07/25/20 18:20 Glucose (Glucose) 16 GM ASDIRECTED PRN PO SEE LABEL COMMENTS 07/25/20 18:20 Heparin Sodium (Porcine) (Heparin) 5,000 units Q12H SC 07/25/20 21:00 07/31/20 21:48 Home Med (Med Rec Complete!) ASDIRECTED XX 07/25/20 19:15 07/25/20 19:21 DC Indapamide (Lozol) 1.25 mg DAILY PO 07/26/20 09:00 07/31/20 07:43 Insulin Detemir (Levemir Insulin) 12 units DAILY SC 07/26/20 09:00 07/31/20 07:37 Insulin Human Lispro (HumaLOG INSULIN) SEE PROTOCOL TABLE AC SC 07/26/20 07:30 07/31/20 17:12 Insulin Human Lispro (HumaLOG INSULIN) SEE PROTOCOL TABLE QHS SC 07/25/20 21:00 Lactobacillus Acidophilus (Bacid) 1 ea WM PO 07/31/20 12:30 07/31/20 17:12 Lisinopril (Prinivil) 20 mg DAILY PO 07/26/20 09:00 07/31/20 07:43 Metformin HCl (Glucophage Xr) 500 mg DAILY@18 PO 07/25/20 18:00 07/31/20 17:12 Omeprazole (PriLOSEC) 20 mg DAILY PO 07/26/20 09:00 07/31/20 07:43 Oxycodone HCl (Roxicodone, Oxyir) 5 mg Q4HP PRN PO PAIN 07/26/20 22:05 08/01/20 02:08 Oxycodone HCl (Roxicodone, Oxyir) 10 mg Q4HP PRN PO PAIN 07/25/20 18:20 07/26/20 22:18 DC 07/26/20 03:54 Polyethylene Glycol (Miralax) 1 pkt DAILY PRN PO CONSTIPATION 07/25/20 18:20 07/30/20 17:12 DC 07/30/20 08:35 Rosuvastatin Calcium (Crestor) 5 mg QHS PO 07/25/20 21:00 07/31/20 21:48 Senna (Senokot) 1 tab QHS PO 07/25/20 21:00 07/30/20 17:12 DC 07/29/20 21:22 MINH SANTIAGO MD August 01, 2020 08:12
--- NOTE | 2020-08-01 08:12 | IPNPDOC ---
PM&R Progress Note DATE OF SERVICE: August 01, 2020 Survey Technician Progress Note Subjective: Patient seen in his room stating he feels discouraged since he is unable to put on his own brace and safely transfer to the commode. He is is open to having his brace adjusted. REVIEW OF SYSTEMS: The following is a completed review of systems and has been reviewed. Review of systems otherwise unremarkable. PAIN: Patient self reports minimal low back pain EYES: No recent vision changes EARS, NOSE, & THROAT:No throat pain, or dysphagia, or rhinorrhea CARDIOVASCULAR: Denies chest pain or palpitations PULMONARY: Denies shortness of breath GASTROINTESTINAL: Denies constipation/diarrhea GENITOURINARY: denies dysuria MUSCULOSKELETAL: low back pain NEUROLOGICAL: left foot drop with paresthesias HEMATOLOGICAL: denies easy bruising SKIN:lumbar incision PSYCHIATRIC: Unremarkable All other review of systems found to be negative. PHYSICAL EXAMINATION: VITAL SIGNS: Please see below. GENERAL: Pleasant and cooperative. No acute distress. HEENT: PERRL. Extraocular movements intact. Clear conjunctiva CARDIOVASCULAR: Regular rate and rhythm. No murmurs, rubs, or gallops LUNGS: Clear to auscultation bilaterally. No wheezes. No rhonchi ABDOMEN: Soft, nontender, nondistended. Positive bowel sounds. Normal active bowel sounds NEUROLOGICAL: Alert and oriented times three. Cranial nerves II through XII grossly intact. Sensation diminished to light touch L4-L5 dermatomes on left EXTREMITIES: 5\5 strength bilateral upper extremities. 5\5 strength right lower extremity. 5/5 strength in left lower extremity, except 0/5 ELH and 1/5 ankle eversion SKIN: lumbo-sacral incision with sutures, no branden-incision induration or drainage, however new patches of exudate along incision line ASSESSMENT:70-year-old M with past medical history of HTN. DM. chronic low back pain who presents status post L3-S1 decompression PLAN: 1. REhab- PT/OT advance mobility and ADLs, spinal precautions, strengthen/s tretch/maintain ROM all 4llimbs, eval for left AFO vs lateral wedge -spoke with Nikita Montemayor about adjusting TLSO straps so patient can don himself 2. Neuro/Ortho- s/p L3-S1 decompression complicated by left foot drop requiring washout and drainage- patient denies saddle region anesthesia or incontinence, TLSO when OOB, f/u neurosurgery on d/c -monitor CRP and wbc for post-op infection- CRP trending down 3. Cardiac- HX of HTN c/u BP meds -HLD c/u statin 4. REsp- monitor for infection 5. Endo- hx of DM c/u metformin, Insulin and ISS 6. GI ppx- prilosec 7. DVT ppx- heparin 8. Pain- tylneol, gabapentin, oxycodone 9. REnal- f/u with Dr. Carbajal for incidental renal lesion 10. Depression- lexapro 11. Skin- lumbar incision with scant exudate, no drainage, c/u santyl and increased dressing change frequency to BID with wound cleanser and branden- incisional skin prep to prevent branden-incisional maceration, not concerned at this time for hardware infection/spinal abscess as patient afebrile, no leukocytosis, no new weakness on exam, and CRP trending down -c/u doxycycline for soft tissue infection 12. Dispo-08/04/20 to home Allergies Coded Allergies: No Known Allergies (Unverified , 07/25/20) Vital Signs Vital Signs Date Time Temp Pulse Resp B/P (MAP) Pulse Ox O2 Delivery O2 Flow Rate FiO2 08/01/20 06:00 97.6 78 21 139/64 (89) 96 Room Air Laboratory Data Labs 24H Laboratory Tests 2 07/31/20 11:21: Bedside Glucose (Misc Panel) 144H 07/31/20 16:28: Bedside Glucose (Misc Panel) 149H 07/31/20 19:51: Bedside Glucose (Misc Panel) 177H 08/01/20 05:50: Bedside Glucose (Misc Panel) 167H Current Medications Current Medications Current Medications Medications (Trade) Dose Ordered Sig/Roya Route PRN Reason Start Time Stop Time Status Last Admin Dose Admin Acetaminophen (Tylenol Tab) 1,000 mg TID PO 07/25/20 21:00 07/31/20 21:47 Bisacodyl (Dulcolax Suppository) 10 mg DAILYPRN PRN [place] CONSTIPATION 07/25/20 18:20 Collagenase (SantyL) 1 dose BID TOP 07/31/20 14:00 07/31/20 21:49 Dextrose (Dextrose 50%) 25 ml ASDIRECTED PRN IV SEE LABEL COMMENTS 07/25/20 18:20 Docusate Sodium (Colace) 100 mg BID PO 07/25/20 21:00 07/30/20 17:12 DC 07/30/20 08:35 Doxycycline Hyclate (Vibramycin) 100 mg BID PO 07/31/20 13:00 08/06/20 21:01 07/31/20 21:47 Escitalopram Oxalate (Lexapro) 5 mg DAILY PO 07/26/20 09:00 07/31/20 07:43 Gabapentin (Neurontin) 300 mg TID PO 07/25/20 21:00 07/31/20 21:48 Glucagon (Glucagon) 1 mg ASDIRECTED PRN SC SEE LABEL COMMENTS 07/25/20 18:20 Glucose (Glucose) 16 GM ASDIRECTED PRN PO SEE LABEL COMMENTS 07/25/20 18:20 Heparin Sodium (Porcine) (Heparin) 5,000 units Q12H SC 07/25/20 21:00 07/31/20 21:48 Home Med (Med Rec Complete!) ASDIRECTED XX 07/25/20 19:15 07/25/20 19:21 DC Indapamide (Lozol) 1.25 mg DAILY PO 07/26/20 09:00 07/31/20 07:43 Insulin Detemir (Levemir Insulin) 12 units DAILY SC 07/26/20 09:00 07/31/20 07:37 Insulin Human Lispro (HumaLOG INSULIN) SEE PROTOCOL TABLE AC SC 07/26/20 07:30 07/31/20 17:12 Insulin Human Lispro (HumaLOG INSULIN) SEE PROTOCOL TABLE QHS SC 07/25/20 21:00 Lactobacillus Acidophilus (Bacid) 1 ea WM PO 07/31/20 12:30 07/31/20 17:12 Lisinopril (Prinivil) 20 mg DAILY PO 07/26/20 09:00 07/31/20 07:43 Metformin HCl (Glucophage Xr) 500 mg DAILY@18 PO 07/25/20 18:00 07/31/20 17:12 Omeprazole (PriLOSEC) 20 mg DAILY PO 07/26/20 09:00 07/31/20 07:43 Oxycodone HCl (Roxicodone, Oxyir) 5 mg Q4HP PRN PO PAIN 07/26/20 22:05 08/01/20 02:08 Oxycodone HCl (Roxicodone, Oxyir) 10 mg Q4HP PRN PO PAIN 07/25/20 18:20 07/26/20 22:18 DC 07/26/20 03:54 Polyethylene Glycol (Miralax) 1 pkt DAILY PRN PO CONSTIPATION 07/25/20 18:20 07/30/20 17:12 DC 07/30/20 08:35 Rosuvastatin Calcium (Crestor) 5 mg QHS PO 07/25/20 21:00 07/31/20 21:48 Senna (Senokot) 1 tab QHS PO 07/25/20 21:00 07/30/20 17:12 DC 07/29/20 21:22 MINH SANTIAGO MD August 01, 2020 08:12
[2020-08-01] MEDS: DOXYCYCLINE HYCLATE 100MG TABLET PO SCH ×2 (08:13→20:46)
[2020-08-01] MEDS: INDAPAMIDE 1.25MG TABLET PO SCH (08:13)
[2020-08-01] MEDS: GABAPENTIN 300 MG CAP PO SCH ×3 (08:13→20:45)
[2020-08-01] MEDS: LACTOBACILLUS ACIDOPHILUS CAP (BACID) PO SCH ×3 (08:13→17:15)
[2020-08-01] MEDS: HEPARIN SOD (PORCINE) 5000UNITS/ML 1ML VIAL/SYRINGE SC SCH ×2 (08:13→20:45)
[2020-08-01] MEDS: OMEPRAZOLE 20 MG CAP PO SCH (08:13)
[2020-08-01] MEDS: ESCITALOPRAM OXALATE 5MG TABLET (LEXAPRO) PO SCH (08:13)
[2020-08-01] MEDS: ACETAMINOPHEN 500 MG TAB PO SCH ×3 (08:13→20:46)
[2020-08-01] MEDS: REMEDY PHYTOPLEX Z-GUARD PASTE 113GM TUBE (FROM STOREROOM PRODUCT) TOP SCH ×3 (08:14→20:48)
[2020-08-01] MEDS: SANTYL OINT 30GM TOP SCH ×2 (08:14→20:49)
[2020-08-01] MEDS: PREPARATION H SUPP (HEMORRHOID) PR SCH ×2 (09:00→20:48)
[2020-08-01 09:58] LABS: BASO # 0.1 10^3/uL (0.0-0.2); BASO % 0.6 % (0.0-1.0); EOS # 0.2 10^3/uL (0.0-0.5); EOS % 2.1 % (0.0-3.0); HEMOGLOBIN 11.5 g/dl (13.5-17.5); MEAN CORPUSCULAR HEMOGLOBIN 30.2 pg (27.0-33.0); MEAN CORPUSCULAR HGB CONC 31.9 g/dl (32.0-36.5); MEAN CORPUSCULAR VOLUME 94.5 fl (80.0-96.0); MONO # 0.7 10^3/uL (0.0-0.8); MONO % 7.5 % (2.0-8.0); NEUTROPHILS # 6.9 10^3/uL (1.5-8.5); NEUTROPHILS % 77.8 % (36.0-66.0); PLATELET COUNT, AUTOMATED 611 10^3/uL (150-450); RED BLOOD COUNT 3.81 10^6/uL (4.30-6.10); WHITE BLOOD COUNT 8.8 10^3/uL (4.0-10.0)
[2020-08-01 10:14] LABS: BLOOD UREA NITROGEN 33 MG/DL (7-18); C REACTIVE PROTEIN QUANTITATIV 1.36 MG/DL (0.00-0.30); CARBON DIOXIDE LEVEL 27 MEQ/L (21-32); CHLORIDE LEVEL 102 MEQ/L (98-107); CREATININE FOR GFR 1.05 MG/DL (0.70-1.30); GLOMERULAR FILTRATION RATE > 60.0 (>49); GLUCOSE, FASTING 151 MG/DL (70-100); POTASSIUM SERUM 5.2 MEQ/L (3.5-5.1); SODIUM LEVEL 135 MEQ/L (136-145)
[2020-08-01 10:21] LABS: ERYTHROCYTE SEDIMENTATION RATE 86 mm/hr (0-20)
[2020-08-01] MEDS ORDERED: PATIROMER SORBITEX CALCIUM 8.4 GM POWDER PACKET (VELTASSA) PO ONE (13:00)
[2020-08-01 14:00] VITALS: BP 121/65
[2020-08-01] MEDS: metFORMIN XR 500MG TAB *GLUCOPHAGE XR PO SCH (17:16)
[2020-08-01 20:30] VITALS: BP 130/63
[2020-08-01] MEDS: ROSUVASTATIN 10 MG TAB (CRESTOR) PO SCH (20:45)
[2020-08-02 06:08] LABS: BASO % 0.5 % (0.0-1.0); EOS # 0.2 10^3/uL (0.0-0.5); EOS % 2.7 % (0.0-3.0); HEMATOCRIT 35.1 % (42.0-52.0); HEMOGLOBIN 11.2 g/dl (13.5-17.5); LYMPH # 1.2 10^3/uL (1.5-5.0); LYMPH % 14.5 % (24.0-44.0); MEAN CORPUSCULAR HEMOGLOBIN 29.9 pg (27.0-33.0); MEAN CORPUSCULAR HGB CONC 31.9 g/dl (32.0-36.5); MEAN CORPUSCULAR VOLUME 93.9 fl (80.0-96.0); MONO # 0.7 10^3/uL (0.0-0.8); MONO % 8.1 % (2.0-8.0); NEUTROPHILS # 6.1 10^3/uL (1.5-8.5); NEUTROPHILS % 73.6 % (36.0-66.0); PLATELET COUNT, AUTOMATED 538 10^3/uL (150-450); RED BLOOD COUNT 3.74 10^6/uL (4.30-6.10); WHITE BLOOD COUNT 8.2 10^3/uL (4.0-10.0)
[2020-08-02 06:29] LABS: BLOOD UREA NITROGEN 33 MG/DL (7-18); C REACTIVE PROTEIN QUANTITATIV 1.03 MG/DL (0.00-0.30); CALCIUM LEVEL 9.1 MG/DL (8.8-10.2); CARBON DIOXIDE LEVEL 29 MEQ/L (21-32); CHLORIDE LEVEL 102 MEQ/L (98-107); CREATININE FOR GFR 1.03 MG/DL (0.70-1.30); GLOMERULAR FILTRATION RATE > 60.0 (>49); GLUCOSE, FASTING 152 MG/DL (70-100); SODIUM LEVEL 135 MEQ/L (136-145)
[2020-08-02 06:47] VITALS: BP 141/63
[2020-08-02] MEDS: REMEDY PHYTOPLEX Z-GUARD PASTE 113GM TUBE (FROM STOREROOM PRODUCT) TOP SCH ×3 (09:00→21:04)
[2020-08-02] MEDS: PREPARATION H SUPP (HEMORRHOID) PR SCH ×2 (09:00→21:00)
[2020-08-02] MEDS: LACTOBACILLUS ACIDOPHILUS CAP (BACID) PO SCH ×3 (09:40→18:03)
[2020-08-02] MEDS: HumaLOG INSULIN (NovoLOG) PER UNIT SC SCH ×4 (09:40→21:00)
[2020-08-02 09:41] VITALS: BP 135/68
[2020-08-02] MEDS: ACETAMINOPHEN 500 MG TAB PO SCH ×3 (09:41→21:02)
[2020-08-02] MEDS: ESCITALOPRAM OXALATE 5MG TABLET (LEXAPRO) PO SCH (09:41)
[2020-08-02] MEDS: INDAPAMIDE 1.25MG TABLET PO SCH (09:41)
[2020-08-02] MEDS: DOXYCYCLINE HYCLATE 100MG TABLET PO SCH ×2 (09:41→21:03)
[2020-08-02] MEDS: OMEPRAZOLE 20 MG CAP PO SCH (09:41)
[2020-08-02] MEDS: GABAPENTIN 300 MG CAP PO SCH ×3 (09:41→21:01)
[2020-08-02] MEDS: HEPARIN SOD (PORCINE) 5000UNITS/ML 1ML VIAL/SYRINGE SC SCH ×2 (09:42→21:03)
--- NOTE | 2020-08-02 12:02 | IPNPDOC ---
Text Note Date of Service The patient was seen on 08/02/20. NOTE Patient seen and examined. Participating in therapy. PHYSICAL EXAMINATION: GENERAL APPEARANCE: awake, alert, oriented HEENT: Extra muscles intact moist mucous CARDIOVASCULAR: S1, S2, sinus rhythm, no murmurs, rubs or gallops LUNGS: Air entry is equal. No wheezing, rales, rhonchi ABDOMEN: Positive bowel sounds, soft, nontender, nondistended. No rebound, guarding EXTREMITIES: No cyanosis, clubbing or pitting edema Neurologic: Motor function 5 out of 54 extremities. Gait was not tested. Decreased sensation in the left foot light touch LABORATORY DATA: See below. IMAGING: Reviewed from [facility] MICROBIOLOGY: Please see below. Assessment and plan 70-year-old nonsmoker hypertensive diabetic with chronic insomnia, spinal stenosis L3 to S1. Prostate CA, status post prostatectomy transferred from [facility] status post L3-S1 lumbar interbody fusion with washout, admitted to the acute rehabilitation unit for rehabilitation services. Patient has had lo ng-standing back and leg pain and had undergone conservative management without relief of symptoms significant limitations of activities of daily living, was brought to the operating room across hospital July 18 for L3-S1 transforaminal lumbar interbody fusion on postop day #3, patient developed a new left sided foot drop but back to the OR for lumbar wound washout intraoperative cultures were negative for acute infection. He was treated with prophylactic intravenous Kefzol with improvement in his left foot sharonda patient had no other clinical issues and was transferred to the acute rehabilitation unit [facility]. Patient is currently stable with no complaints. Hospitalist was asked to help manage chronic medical problems. Patient denies any chest pain, pressure, tightness, shortness of breath, palpitations, lightheadedness, dizziness, near syncope. He denies any fever, chills, cough, changes in weight, bowel habits, dysuria, urgency, frequency bright red blood per rectum, melena, black tarry stools, nausea, vomiting, diarrhea, abdominal pain, constipation. He denies any polyuria, polydipsia, polyphagia. No changes in his neurological status, and denies diplopia, blurred vision, muscle or joint pains, generalized maculopapular rash, sore throat, vertigo, ear discharge. 1: Symptomatic spinal stenosis with left sided foot drop, status post L3-S1 transforaminal lumbar interbody fusion and lumbar washout: Patient is to wear molded TLSO brace when out of bed with full weightbearing. Wound care as per recommendations Follow-up with neurosurgery within 2 weeks . Rehabilitation services per P MR. 2. Renal mass, incidental finding at [facility]: Urology referral on discharge 3. History of prostate cancer status post prostatectomy. Urology referral for follow-up 4. Hypertension. Will hold lisinopril as the patient's potassium has been around 5. We will reevaluate the need of continuing lisinopril by monitoring the blood pressure. 5. Type 2 diabetes: On Lantus oral hypoglycemics and insulin sliding scale with coverage fingersticks every before meals at bedtime check A1c 6. Dyslipidemia: On rosuvastatin Disposition as per Aziza Bangura, I+O Aziza EUGENE, I+O Laboratory Tests 08/02/20 05:53 Vital Signs Date Time Temp Pulse Resp B/P (MAP) Pulse Ox O2 Delivery O2 Flow Rate FiO2 08/02/20 09:41 135/68 08/02/20 06:47 98.2 77 18 94 Room Air I&O- Last 24 Hours up to 6 AM 08/02/20 05:59 Intake Total 470 ml Balance 470 ml SUMEET MONSIVAIS MD August 02, 2020 12:01
[2020-08-02 14:00] VITALS: BP 114/54
[2020-08-02] MEDS: SANTYL OINT 30GM TOP SCH ×2 (14:32→21:04)
[2020-08-02] MEDS: metFORMIN XR 500MG TAB *GLUCOPHAGE XR PO SCH (18:04)
[2020-08-02 20:10] VITALS: BP 155/67
[2020-08-02] MEDS: ROSUVASTATIN 10 MG TAB (CRESTOR) PO SCH (21:02)
[2020-08-02] MEDS: oxyCODONE 5MG TAB PO PRN (22:13)
[2020-08-03 06:00] VITALS: BP 154/65
[2020-08-03] MEDS: INDAPAMIDE 1.25MG TABLET PO SCH (08:39)
[2020-08-03] MEDS: ESCITALOPRAM OXALATE 5MG TABLET (LEXAPRO) PO SCH (08:40)
[2020-08-03] MEDS: DOXYCYCLINE HYCLATE 100MG TABLET PO SCH (08:40)
[2020-08-03] MEDS: OMEPRAZOLE 20 MG CAP PO SCH (08:40)
[2020-08-03] MEDS: HEPARIN SOD (PORCINE) 5000UNITS/ML 1ML VIAL/SYRINGE SC SCH (08:43)
[2020-08-03] MEDS: SANTYL OINT 30GM TOP SCH (08:43)
[2020-08-03] MEDS: REMEDY PHYTOPLEX Z-GUARD PASTE 113GM TUBE (FROM STOREROOM PRODUCT) TOP SCH (08:43)
[2020-08-03] MEDS: PREPARATION H SUPP (HEMORRHOID) PR SCH (08:44)
[2020-08-03] MEDS: ACETAMINOPHEN 500 MG TAB PO SCH (08:45)
[2020-08-03] MEDS: GABAPENTIN 300 MG CAP PO SCH (08:46)
[2020-08-03] MEDS: LACTOBACILLUS ACIDOPHILUS CAP (BACID) PO SCH ×2 (08:46→12:30)
[2020-08-03] MEDS: HumaLOG INSULIN (NovoLOG) PER UNIT SC SCH ×2 (08:47→12:00)
[2020-08-03] MEDS ORDERED: METF-838 PO (10:13)
[2020-08-03] MEDS ORDERED: RISATAB3 PO (10:13)
[2020-08-03] MEDS ORDERED: LEXA5TAB13 PO (10:13)
[2020-08-03] MEDS ORDERED: DOXY100T PO (10:13)
[2020-08-03] MEDS ORDERED: CRES10TA PO (10:13)
[2020-08-03] MEDS ORDERED: HEMO1SUP10 PR (10:13)
[2020-08-03] MEDS ORDERED: OXYC-517 PO (10:13)
[2020-08-03] MEDS ORDERED: GABA-282 PO (10:13)
[2020-08-03] MEDS ORDERED: INDA125TA PO (10:13)
[2020-08-03] MEDS ORDERED: OMEP-218 PO (10:13)
--- NOTE | 2020-08-03 10:32 | IPNPDOC ---
PM&R Progress Note DATE OF SERVICE: August 02, 2020 Loft Worker Apprentice Progress Note Subjective: Patient seen in his room stating he feels stronger and ready to go home tomorrow. REVIEW OF SYSTEMS: The following is a completed review of systems and has been reviewed. Review of systems otherwise unremarkable. PAIN: Patient self reports minimal low back pain EYES: No recent vision changes EARS, NOSE, & THROAT:No throat pain, or dysphagia, or rhinorrhea CARDIOVASCULAR: Denies chest pain or palpitations PULMONARY: Denies shortness of breath GASTROINTESTINAL: Denies constipation/diarrhea GENITOURINARY: denies dysuria MUSCULOSKELETAL: low back pain NEUROLOGICAL: left foot drop with paresthesias HEMATOLOGICAL: denies easy bruising SKIN:lumbar incision PSYCHIATRIC: Unremarkable All other review of systems found to be negative. PHYSICAL EXAMINATION: VITAL SIGNS: Please see below. GENERAL: Pleasant and cooperative. No acute distress. HEENT: PERRL. Extraocular movements intact. Clear conjunctiva CARDIOVASCULAR: Regular rate and rhythm. No murmurs, rubs, or gallops LUNGS: Clear to auscultation bilaterally. No wheezes. No rhonchi ABDOMEN: Soft, nontender, nondistended. Positive bowel sounds. Normal active bowel sounds NEUROLOGICAL: Alert and oriented times three. Cranial nerves II through XII grossly intact. Sensation diminished to light touch L4-L5 dermatomes on left EXTREMITIES: 5\5 strength bilateral upper extremities. 5\5 strength right lower extremity. 5/5 strength in left lower extremity, except 0/5 ELH and 1/5 ankle eversion SKIN: lumbo-sacral incision with sutures, no branden-incision induration or drainage, however new patches of exudate along incision line ASSESSMENT:70-year-old M with past medical history of HTN. DM. chronic low back pain who presents status post L3-S1 decompression PLAN: 1. REhab- PT/OT advance mobility and ADLs, spinal precautions, strengthen/stretch/maintain ROM all 4llimbs- room privileges -spoke with Nikita Montemayor about adjusting TLSO straps so patient can don himself and will provide carbon fiber AFO 2. Neuro/Ortho- s/p L3-S1 decompression complicated by left foot drop requiring washout and drainage- patient denies saddle region anesthesia or incontinence, TLSO when OOB, f/u neurosurgery on d/c -monitor CRP and wbc for post-op infection- CRP trending down 3. Cardiac- HX of HTN c/u BP meds -HLD c/u statin 4. REsp- monitor for infection 5. Endo- hx of DM c/u metformin, Insulin and ISS 6. GI ppx- prilosec 7. DVT ppx- heparin 8. Pain- Tylenol, gabapentin, oxycodone 9. REnal- f/u with Dr. Carbajal for incidental renal lesion 10. Depression- lexapro 11. Skin- lumbar incision with scant exudate, no drainage, c/u santyl and increased dressing change frequency to BID with wound cleanser and branden-incisi onal skin prep to prevent branden-incisional maceration, not concerned at this time for hardware infection/spinal abscess as patient afebrile, no leukocytosis, no new weakness on exam, and CRP trending down -c/u doxycycline for soft tissue infection 12. Hyperkalemia- resolved s/p veltassa 13. Dispo-08/04/20 to home Allergies Coded Allergies: No Known Allergies (Unverified , 07/25/20) Vital Signs Vital Signs Date Time Temp Pulse Resp B/P (MAP) Pulse Ox O2 Delivery O2 Flow Rate FiO2 08/03/20 06:00 97.5 85 18 154/65 (94) 98 Room Air Laboratory Data Labs 24H Laboratory Tests 2 08/02/20 11:26: Bedside Glucose (Misc Panel) 157H 08/02/20 16:35: Bedside Glucose (Misc Panel) 163H 08/02/20 19:59: Bedside Glucose (Misc Panel) 217H 08/03/20 06:56: Bedside Glucose (Misc Panel) 242H Current Medications Current Medications Current Medications Medications (Trade) Dose Ordered Sig/Roya Route PRN Reason Start Time Stop Time Status Last Admin Dose Admin Acetaminophen (Tylenol Tab) 1,000 mg TID PO 07/25/20 21:00 08/03/20 08:45 Bisacodyl (Dulcolax Suppository) 10 mg DAILYPRN PRN [place] CONSTIPATION 07/25/20 18:20 Collagenase (SantyL) 1 dose BID TOP 07/31/20 14:00 08/03/20 08:43 Dextrose (Dextrose 50%) 25 ml ASDIRECTED PRN IV SEE LABEL COMMENTS 07/25/20 18:20 Docusate Sodium (Colace) 100 mg BID PO 07/25/20 21:00 07/30/20 17:12 DC 07/30/20 08:35 Doxycycline Hyclate (Vibramycin) 100 mg BID PO 07/31/20 13:00 08/06/20 21:01 08/03/20 08:40 Escitalopram Oxalate (Lexapro) 5 mg DAILY PO 07/26/20 09:00 08/03/20 08:40 Gabapentin (Neurontin) 300 mg TID PO 07/25/20 21:00 08/01/20 20:11 DC 08/01/20 15:26 Gabapentin (Neurontin) 600 mg TID PO 08/01/20 21:00 08/03/20 08:46 Glucagon (Glucagon) 1 mg ASDIRECTED PRN SC SEE LABEL COMMENTS 07/25/20 18:20 Glucose (Glucose) 16 GM ASDIRECTED PRN PO SEE LABEL COMMENTS 07/25/20 18:20 Heparin Sodium (Porcine) (Heparin) 5,000 units Q12H SC 07/25/20 21:00 08/02/20 21:03 Home Med (Med Rec Complete!) ASDIRECTED XX 07/25/20 19:15 07/25/20 19:21 DC Indapamide (Lozol) 1.25 mg DAILY PO 07/26/20 09:00 08/03/20 08:39 Insulin Detemir (Levemir Insulin) 12 units DAILY SC 07/26/20 09:00 08/01/20 13:27 DC 08/01/20 08:12 Insulin Human Lispro (HumaLOG INSULIN) SEE PROTOCOL TABLE AC SC 07/26/20 07:30 08/03/20 08:47 Insulin Human Lispro (HumaLOG INSULIN) SEE PROTOCOL TABLE QHS SC 07/25/20 21:00 Lactobacillus Acidophilus (Bacid) 1 ea WM PO 07/31/20 12:30 08/03/20 08:46 Lisinopril (Prinivil) 20 mg DAILY PO 07/26/20 09:00 08/02/20 12:03 DC 08/02/20 09:41 Metformin HCl (Glucophage Xr) 500 mg DAILY@18 PO 07/25/20 18:00 08/01/20 13:27 DC 07/31/20 17:12 Metformin HCl (Glucophage Xr) 1,000 mg DAILY@18 PO 08/01/20 18:00 08/02/20 18:04 Omeprazole (PriLOSEC) 20 mg DAILY PO 07/26/20 09:00 08/03/20 08:40 Oxycodone HCl (Roxicodone, Oxyir) 5 mg Q4HP PRN PO PAIN 07/26/20 22:05 08/02/20 22:13 Oxycodone HCl (Roxicodone, Oxyir) 10 mg Q4HP PRN PO PAIN 07/25/20 18:20 07/26/20 22:18 DC 07/26/20 03:54 Phenylephrine HCl (Preparation H Supp) 1 sup BID [place] 08/01/20 09:00 Polyethylene Glycol (Miralax) 1 pkt DAILY PRN PO CONSTIPATION 07/25/20 18:20 07/30/20 17:12 DC 07/30/20 08:35 Rosuvastatin Calcium (Crestor) 5 mg QHS PO 07/25/20 21:00 08/02/20 21:02 Senna (Senokot) 1 tab QHS PO 07/25/20 21:00 07/30/20 17:12 DC 07/29/20 21:22 MINH SANTIAGO MD August 03, 2020 10:32
--- NOTE | 2020-08-03 12:42 | IPNPDOC ---
Text Note Date of Service The patient was seen on 08/03/20. NOTE Patient seen and examined. Participating in therapy. No over night events PHYSICAL EXAMINATION: GENERAL APPEARANCE: awake, alert, oriented HEENT: Extra muscles intact moist mucous CARDIOVASCULAR: S1, S2, sinus rhythm, no murmurs, rubs or gallops LUNGS: Air entry is equal. No wheezing, rales, rhonchi ABDOMEN: Positive bowel sounds, soft, nontender, nondistended. No rebound, guarding EXTREMITIES: No cyanosis, clubbing or pitting edema Neurologic: Motor function 5 out of 54 extremities. Gait was not tested. Dec reased sensation in the left foot light touch LABORATORY DATA: See below. IMAGING: Reviewed from [facility] Assessment and plan 70-year-old nonsmoker hypertensive diabetic with chronic insomnia, spinal stenosis L3 to S1. Prostate CA, status post prostatectomy transferred from [facility] status post L3-S1 lumbar interbody fusion with washout, admitted to the acute rehabilitation unit for rehabilitation services. Patient has had long-standing back and leg pain and had undergone conservative management without relief of symptoms significant limitations of activities of daily living, was brought to the operating room across hospital July 18 for L3-S1 transforaminal lumbar interbody fusion on postop day #3, patient developed a new left sided foot drop but back to the OR for lumbar wound washout intraoperative cultures were negative for acute infection. He was treated with prophylactic intravenous Kefzol with improvement in his left foot sharonda patient had no other clinical issues and was transferred to the acute rehabilitation unit [facility]. Patient is currently stable with no complaints. Hospitalist was asked to help manage chronic medical problems. Patient denies any chest pain, pressure, tightness, shortness of breath, palpitations, lightheadedness, dizziness, near syncope. He denies any fever, chills, cough, changes in weight, bowel habits, dysuria, urgency, frequency bright red blood per rectum, melena, black tarry stools, nausea, vomiting, diarrhea, abdominal pain, constipation. He denies any polyuria, polydipsia, polyphagia. No changes in his neurological status, and denies diplopia, blurred vision, muscle or joint pains, generalized maculopapular rash, sore throat, vertigo, ear discharge. 1: Symptomatic spinal stenosis with left sided foot drop, status post L3-S1 transforaminal lumbar interbody fusion and lumbar washout: Patient is to wear molded TLSO brace when out of bed with full weightbearing. Wound care as per recommendations Follow-up with neurosurgery within 2 weeks . Rehabilitation services per P MR. 2. Renal mass, incidental finding at [facility]: Urology referral on discharge 3. History of prostate cancer status post prostatectomy. Urology referral for follow-up 4. Hypertension. Will hold lisinopril as the patient's potassium has been around 5. We will reevaluate the need of continuing lisinopril by monitoring the blood pressure. 5. Type 2 diabetes: On Lantus oral hypoglycemics and insulin sliding scale with coverage fingersticks every before meals at bedtime check A1c 6. Dyslipidemia: On rosuvastatin Disposition as per aRU VSAziza, I+O VSAziza, I+O Vital Signs Date Time Temp Pulse Resp B/P (MAP) Pulse Ox O2 Delivery O2 Flow Rate FiO2 08/03/20 06:00 97.5 85 18 154/65 (94) 98 Room Air I&O- Last 24 Hours up to 6 AM 08/03/20 06:00 Intake Total 560 ml Balance 560 ml SUMEET MONSIVAIS MD August 03, 2020 12:42
[2020-08-03 14:22] VITALS: BP 140/70
[2020-08-03] MEDS: oxyCODONE 5MG TAB PO PRN (14:36)
== END 2020-08-03 15:15 | disposition home health service (06) | DRG 566 ==
LOC: M PM&R 16:45
PROVIDERS: ADMIT Physical Medicine & Rehabilitation; ATTEND Physical Medicine & Rehabilitation
DX: M21.372 Foot drop, left foot (principal); E11.9 Type 2 diabetes mellitus without complications; I10 Essential (primary) hypertension; E78.5 Hyperlipidemia, unspecified; M54.5 Low back pain; F32.9 Major depressive disorder, single episode, unspecified; R20.0 Anesthesia of skin; G47.00 Insomnia, unspecified; K21.9 Gastro-esophageal reflux disease without esophagitis; N28.89 Other specified disorders of kidney and ureter; Z98.1 Arthrodesis status; Z74.1 Need for assistance with personal care; Z74.09 Other reduced mobility; Z79.4 Long term (current) use of insulin; Z79.899 Other long term (current) drug therapy; Z98.890 Other specified postprocedural states